=== PATIENT | male | born 1955 | race Caucasian/White ===

== ENCOUNTER 2019-06-01 10:58 | Emergency (ER) | payer OTHER ==
--- NOTE | 2019-06-01 11:41 | CR ---
[id number] RAD/RAD Abd Flat and Upright 2V Exam: RAD Abd Flat and Upright 2V Clinical Data: ABDOMINAL PAIN COMPARISON: NO PREVIOUS SIMILAR EXAM IS AVAILABLE FINDINGS: There is no bowel obstruction. There is no obvious large fecal volume. There is mild pleural reaction at the right lung base. There are vascular calcifications. There is no evidence of organomegaly. IMPRESSION: NO APPRECIABLE OBSTIPATION. NO BOWEL OBSTRUCTION. Eulogio Chambers MD 06/01/19 [id number] Thank you for allowing us to participate in the care of your patient.
--- NOTE | 2019-06-01 12:29 | EDM.PDOC ---
ED HPI GENERAL MEDICAL PROBLEM - General Chief Complaint: Abdominal Pain Stated Complaint: ABDOMINAL PAIN/CONSTIPATION Time Seen by Provider: 06/01/19 11:21 Source of Information: Reports: Patient History Limitations: Reports: No Limitations - History of Present Illness INITIAL COMMENTS - FREE TEXT/NARRATIVE: Patient presents with constipation and abdominal pain/bloating. He hasn't had a good bowel movement for at least a week, only small amounts since then and nothing in last 3 days. He took Mag Citrate 5 days ago which did nothing. Took some Epsom Salt 3 days ago that moved a little but nothing since then. Appetite is good. No vomiting and decreased gas. He has constipation chronically and takes Miralax and Senna. Other Treatments [employer]: Mg citrate Bilateral Upper Abdomen Pain Score (Numeric/FACES): 2 - Related Data Allergies Allergy/AdvReac Type Severity Reaction Status Date / Time No Known Drug Allergies Allergy Other Verified 06/01/19 11:22 Home Meds: Home Meds Aspirin [Halfprin] 81 mg PO DAILY 06/01/19 [History] Clotrimazole/Betamethasone Dip [Lotrisone Cream] 1 applic TOP BID PRN 06/01/19 [ History] Fenofibrate 160 mg PO DAILY 06/01/19 [History] Lisinopril 40 mg PO DAILY 06/01/19 [History] NIFEdipine [Procardia Xl] 90 mg PO DAILY 06/01/19 [History] Triamcinolone Acetonide [Kenalog 0.1% Crm] 1 applic TOP BID PRN 06/01/19 [ History] atorvaSTATin [Lipitor] 40 mg PO DAILY 06/01/19 [History] glipiZIDE [Glucotrol XL] 20 mg PO DAILY 06/01/19 [History] guaiFENesin/Dextromethorphan [Cough Dm Syrup] 10 ml PO Q4HR PRN 06/01/19 [ History] metFORMIN HCl [Glucophage XR] 1,000 mg PO DAILY 06/01/19 [History] metFORMIN HCl [Glucophage XR] 500 mg PO DAILY@1800 06/01/19 [History] Social & Family History - Tobacco Use Smoking Status *Q: Never Smoker - Recreational Drug Use Recreational Drug Use: No ED ROS GENERAL - Review of Systems Review Of Systems: See Below Constitutional: Denies: Fever, Chills, Malaise, Weakness, Decreased Appetite HEENT: Reports: No Symptoms Respiratory: Denies: Shortness of Breath, Cough Cardiovascular: Denies: Chest Pain, Lightheadedness, Syncope GI/Abdominal: Reports: Abdominal Pain (across upper abdomen; bloating feeling, relieved some by ishmael-seltzer and belching), Constipation, Distension (bloating) . Denies: Diarrhea, Decreased Appetite, Difficulty Swallowing, Nausea, Vomiting : Denies: Dysuria Musculoskeletal: Reports: No Symptoms Skin: Denies: Cyanosis, Jaundice, Mottled, Pallor, Diaphoresis Neurological: Denies: Confusion, Dizziness, Seizure, Syncope, Trouble Speaking, Difficulty Walking Psychiatric: Denies: Agitation, Anxiety, Confusion ED EXAM, GI/ABD - Physical Exam Exam: See Below Exam Limited By: No Limitations General Appearance: Alert, WD/WN, No Apparent Distress Eyes: Bilateral: Normal Appearance, EOMI Ears: Normal External Exam, Hearing Grossly Normal Nose: Normal Inspection, No Blood Throat/Mouth: Normal Inspection, Normal Lips, Normal Voice, No Airway Compromise Head: Atraumatic, Normocephalic Neck: Normal Inspection, Full Range of Motion Respiratory/Chest: No Respiratory Distress, Lungs Clear, Normal Breath Sounds Cardiovascular: Regular Rate, Rhythm, No Murmur GI/Abdominal Exam: Non-Tender, Distended (moderate but soft), Abnormal Bowel Sounds (decreased). No: Guarding, Rigid, Tender Rectal (Males) Exam: Normal Exam, Normal Rectal Tone. No: Black Stool, Bloody Stool, Fecal Impaction, Hemorrhoids, Mass, Perirectal Abscess, Rectal Fissure, Tenderness Back Exam: Normal Inspection, Full Range of Motion. No: CVA Tenderness (L), CVA Tenderness (R) Extremities: Normal Inspection, Normal Range of Motion, Non-Tender Neurological: Alert, Oriented, Normal Cognition, No Motor/Sensory Deficits Psychiatric: Normal Affect, Normal Mood Skin Exam: Warm, Dry, Intact, Normal Color, No Rash Course - Vital Signs Last Recorded V/S: Last Vital Signs Temp 96.9 F 06/01/19 11:05 Pulse 73 06/01/19 11:05 Resp 20 06/01/19 11:05 BP 162/93 H 06/01/19 11:05 Pulse Ox 94 L 06/01/19 11:05 - Re-Assessments/Exams Free Text/Narrative Re-Assessment/Exam: 06/01/19 12:31 Xrays show no large fecal volume and no bowel obstruction. 06/01/19 12:53 Normal APOLLO so will do an enema to clean out as much as possible. Patient thinks he may have H. pylori and would like that checked. 06/01/19 13:00 Our lab doesn't do H pylori blood tests anymore so patient wants to wait and follow up with his PCP for that. 06/01/19 14:57 Enema x 2 was successful in removing a moderate amount of stool with the first and very little with the second. Patient discharged to home in stable condition with recommendation to see his PCP for chronic management of the constipation. Departure - Departure Time of Disposition: 14:59 Disposition: Home, Self-Care 01 Condition: Good Clinical Impression: Constipation Qualifiers: Constipation type: unspecified constipation type Qualified Code(s): K59.00 - Constipation, unspecified - Discharge Information Instructions: Constipation, Adult, [id number] Referrals: Dilcia Davidson, MACHINE [employer]ER [Primary Care Provider] - Additional Instructions: 1. Drink 8 cups of water daily. 2. Take your stool softeners as directed. 3. Follow up with your PCP in a few days for recheck.
== END 2019-06-01 14:30 | disposition home or self-care (01) ==
LOC: KA.ED 10:58
DX: K59.00 Constipation, unspecified (principal); Z79.899 Other long term (current) drug therapy; Z79.82 Long term (current) use of aspirin
CPT/HCPCS: 74021; 99284-25